=== PATIENT | male | born 1980 | race Caucasian/White ===

== ENCOUNTER 2021-06-07 18:49 | Emergency (ER) | payer SELFPAY ==
[2021-06-07] MEDS ORDERED: Cyclobenzaprine 10 MG Tab PO ONE (20:16)
[2021-06-07] MEDS ORDERED: Ketorolac 30 MG/ML SDV IM ONE (20:16)
--- NOTE | 2021-06-07 20:36 | EDM.PDOC ---
ED HPI GENERAL MEDICAL PROBLEM - General Chief Complaint: Lower Extremity Injury/Pain Stated Complaint: SEVERE NERVE PAIN Time Seen by Provider: 06/07/21 20:04 Source of Information: Reports: Patient, RN Notes Reviewed History Limitations: Reports: No Limitations - History of Present Illness INITIAL COMMENTS - FREE TEXT/NARRATIVE: 4-year-old gentleman presents emergency department day with increasing low back pain on the left side, he states he has been dealing with this for about 3 weeks initially was evaluated by orthopedics tried a course of steroids which helped considerably he was pain-free for about a week and then the pain started to return he was evaluated on Saturday MRI was ordered which was done today unfortunately the report is not available. He states the pain has increasingly got worse over the last 3 to 4 days he has been using hydrocodone and ibuprofen with little effect. No loss of bowel or bladder no fevers left leg pain Pain Score (Numeric/FACES): 10 - Related Data Allergies Allergy/AdvReac Type Severity Reaction Status Date / Time erythromycin base Allergy Bleeding Verified 06/07/21 19:43 [Erythromycin Base] Home Meds: Home Meds Acetaminophen/HYDROcodone [HYDROcodone-Acetaminophen 325-5 MG] 1 - 2 tab PO Q6H PRN #16 tab 06/01/21 [Rx] methylPREDNISolone [Medrol Dose Pack] 84 mg PO ASDIRECTED #1 dospk 06/01/21 [Rx] Ibuprofen [Ibu] 800 mg PO Q8HR PRN #21 tablet 06/07/21 [Rx] Past Medical History Musculoskeletal History: Reports: Other (See Below) Other Musculoskeletal History: L hip pain - Past Surgical History GI Surgical History: Reports: Other (See Below) Other GI Surgeries/Procedures: abd. surgery when bably Musculoskeletal Surgical History: Reports: None Dermatological Surgical History: Reports: None Social & Family History - Family History Family Medical History: No Pertinent Family History - Tobacco Use Tobacco Use Status *Q: Current Every Day Tobacco User Years of Tobacco use: 20 Packs/Tins Daily: 1 - Caffeine Use Caffeine Use: Reports: Soda - Recreational Drug Use Recreational Drug Use: No Review of Systems - Review of Systems Review Of Systems: See Below Constitutional: Reports: No Symptoms Respiratory: Reports: No Symptoms Cardiovascular: Reports: No Symptoms GI/Abdominal: Reports: No Symptoms Musculoskeletal: Reports: Back Pain Neurological: Reports: No Symptoms ED EXAM, GENERAL - Physical Exam Exam: See Below Exam Limited By: No Limitations General Appearance: Alert, Mild Distress Respiratory/Chest: No Respiratory Distress Back Exam: Normal Inspection, Decreased Range of Motion. No: CVA Tenderness (R), CVA Tenderness (L), Muscle Spasm, Paraspinal Tenderness, Vertebral Tenderness Extremities: Non-Tender, Other (Straight leg test is negative) Course - Vital Signs Last Recorded V/S: Last Vital Signs Temp 96.5 F L 06/07/21 19:52 Pulse 79 06/07/21 20:51 Resp 16 06/07/21 19:52 BP 146/98 H 06/07/21 20:51 Pulse Ox 98 06/07/21 20:51 - Orders/Labs/Meds Orders: Active Orders 24 hr Category Date Time Status Peripheral IV Care [RC] . DIRECTED Care 06/07/21 22:27 Active Sodium Chloride 0.9% [Normal Saline] 1,000 ml Med 06/07/21 22:30 Active IV ASDIRECTED Sodium Chloride 0.9% [Saline Flush] Med 06/07/21 22:27 Active 10 ml FLUSH ASDIRECTED PRN Peripheral IV Insertion Adult [OM.PC] Urgent Oth 06/07/21 22:27 Ordered Medication Orders Sodium Chloride (Normal Saline) 1,000 mls @ 125 mls/hr IV ASDIRECTED RODNEY Last Admin: 06/07/21 23:00 Dose: 125 mls/hr Documented by: [id number] Sodium Chloride (Sodium Chloride 0.9% 10 Ml Syringe) 10 ml FLUSH ASDIRECTED PRN PRN Reason: Keep Vein Open Last Admin: 06/07/21 22:56 Dose: 10 ml Documented by: [id number] Meds: Medications Generic Name Dose Route Start Last Admin Trade Name Freq PRN Reason Stop Dose Admin Sodium Chloride 1,000 mls @ 125 mls/hr 06/07/21 22:30 06/07/21 23:00 Normal Saline IV 125 mls/hr ASDIRECTED RODNEY Administration Sodium Chloride 10 ml 06/07/21 22:27 06/07/21 22:56 Sodium Chloride 0.9% 10 Ml Syringe FLUSH 10 ml ASDIRECTED PRN Administration Keep Vein Open Discontinued Medications Generic Name Dose Route Start Last Admin Trade Name Freq PRN Reason Stop Dose Admin Cyclobenzaprine HCl 10 mg 06/07/21 20:16 06/07/21 20:23 Cyclobenzaprine 10 Mg Tab PO 06/07/21 20:17 10 mg ONETIME ONE Administration Fentanyl 100 mcg 06/07/21 22:27 06/07/21 22:52 Fentanyl 100 Mcg/2 Ml Sdv IVPUSH 06/07/21 22:28 100 mcg ONETIME ONE Administration Hydromorphone HCl 1 mg 06/07/21 21:11 06/07/21 21:16 Hydromorphone 1 Mg/Ml Syringe IM 06/07/21 21:12 1 mg ONETIME ONE Administration Ketamine HCl 20 mg 06/07/21 22:27 06/07/21 22:56 Ketamine 500 Mg/5 Ml Mdv IV 06/07/21 22:28 20 mg ONETIME ONE Administration Ketorolac Tromethamine 30 mg 06/07/21 20:16 06/07/21 20:23 Ketorolac 30 Mg/Ml Sdv IM 06/07/21 20:17 30 mg ONETIME ONE Administration Departure - Departure Time of Disposition: 23:29 Disposition: Home, Self-Care 01 Condition: Fair Clinical Impression: Low back pain Qualifiers: Chronicity: acute Back pain laterality: left Sciatica presence: without sciatica Qualified Code(s): M54.5 - Low back pain - Discharge Information Instructions: Acute Back Pain, Adult Referrals: PCP,None [Primary Care Provider] - Forms: ED Department Discharge Additional Instructions: Continue to alternate Motrin and Tylenol for pain control use the Percocet for breakthrough pain, try the Flexeril as needed for muscle relaxant continue with the steroids already initiated, please keep your follow-up appointment with orthopedics, return to the emergency department worsening of symptoms Sepsis Event Note (ED) - Evaluation Sepsis Screening Result: No Definite Risk - Focused Exam Vital Signs: Vital Signs Temp Pulse Resp BP Pulse Ox 06/07/21 20:51 79 146/98 H 98 06/07/21 19:52 96.5 F L 75 16 137/85 99 06/07/21 19:42 96.5 F L 75 16 137/85 99 - My Orders Last 24 Hours: My Active Orders 06/07/21 22:27 Peripheral IV Care [RC] . DIRECTED Sodium Chloride 0.9% [Saline Flush] 10 ml FLUSH ASDIRECTED PRN Peripheral IV Insertion Adult [OM.PC] Urgent 06/07/21 22:30 Sodium Chloride 0.9% [Normal Saline] 1,000 ml IV ASDIRECTED - Assessment/Plan Last 24 Hours: My Active Orders 06/07/21 22:27 Peripheral IV Care [RC] . DIRECTED Sodium Chloride 0.9% [Saline Flush] 10 ml FLUSH ASDIRECTED PRN Peripheral IV Insertion Adult [OM.PC] Urgent 06/07/21 22:30 Sodium Chloride 0.9% [Normal Saline] 1,000 ml IV ASDIRECTED Plan: Assessment Acuity = acute Site and laterality = low back pain Etiology = unknown Manifestations = none Location of injury = Home Lab values = none Plan No relief with hydromorphone, did get relief with combination of fentanyl and ketamine, discharged home Percocet 1 tablet p.o. every 4 hours as needed 5/325 total #15 and Flexeril 1 tab p.o. 3 times daily as needed total #15 he will have follow-up with orthopedics next week This note was dictated using [employer] voice recognition software please call with any questions on syntax or grammar.
[2021-06-07 20:51] VITALS: BP 146/98; PULSE 79
[2021-06-07] MEDS ORDERED: HYDROmorphone 1 MG/ML Syringe IM ONE (21:11)
[2021-06-07] MEDS ORDERED: Ketamine 500 MG/5 ML MDV IV ONE (22:27)
[2021-06-07] MEDS ORDERED: fentaNYL 100 MCG/2 ML SDV IVPUSH ONE (22:27)
[2021-06-07] MEDS ORDERED: Sodium Chloride 0.9% 10 ML Syringe FLUSH PRN (22:27)
[2021-06-07] MEDS ORDERED: Sodium Chloride 0.9% 1,000 ML IV SCH (22:30)
== END 2021-06-08 01:29 | disposition home or self-care (01) ==
LOC: JP.ED 18:49
DX: M54.5 Low back pain (principal); Z88.1 Allergy status to other antibiotic agents; Z72.0 Tobacco use
CPT/HCPCS: 96372; 96374; 96375; 99283; A9270; J1170; J1885; J3010; J3360; J7030

== ENCOUNTER 2024-09-09 06:27 | Emergency (ER) | payer MEDICAID ==
[2024-09-09 06:53] VITALS: BP 180/78; PULSE 97
== END 2024-09-09 07:22 | disposition home or self-care (01) ==
LOC: JP.ED 06:27
DX: H66.015 Acute suppurative otitis media with spontaneous rupture of ear drum, recurrent, left ear (principal); F17.210 Nicotine dependence, cigarettes, uncomplicated; Z88.1 Allergy status to other antibiotic agents
CPT/HCPCS: 99282

== ENCOUNTER 2025-05-06 19:27 | Emergency (ER) | payer MEDICARE, OTHER ==
[2025-05-06 20:13] VITALS: BP 168/102; PULSE 82
== END 2025-05-06 21:16 | disposition home or self-care (01) ==
LOC: JP.ED 19:27
DX: K02.9 Dental caries, unspecified (principal); F17.200 Nicotine dependence, unspecified, uncomplicated; Z88.1 Allergy status to other antibiotic agents; Z79.899 Other long term (current) drug therapy
CPT/HCPCS: 64400; 99282-25